=== PATIENT | female | born 2005 | race Two or more races ===

== ENCOUNTER 2024-08-23 06:59 | Emergency (ER) | payer BC, SELFPAY ==
[2024-08-23 07:04] VITALS: BP 131/87; PULSE 87; RESP 18; TEMP 36.7; O2SAT 98
--- NOTE | 2024-08-23 07:14 | XR_ITS ---
EXAMINATION: US pelvic complete ORDERING PROVIDER: KACIE Padilla HISTORY: 19-year-old with on and off pelvic pain and nausea x3 days. TECHNIQUE: Multiplanar still ultrasonography of the pelvis was performed using grayscale imaging, supplemented by color and spectral Doppler as needed. Images were performed transabdominally and transvaginally. COMPARISON: 01/07/2024, pelvic ultrasound. FINDINGS: Pertinent Labs: Beta-hCG pending Last Menstrual Period: 07/30/2024 Uterus: 7.6 x 3.7 x 5.7 cm. Normal in size and contour. Endometrium: 1.3 cm. Normal in size for menstrual status. Right Ovary: 3.8 x 2.7 x 3.3 cm, 17.8 mL. Normal in size, contour, and echogenicity. Normal vascular flow. Left Ovary: 2.3 x 1.2 x 1.8 cm, 2.7 mL. Normal in size, contour, and echogenicity. Normal vascular flow. Adnexa: No visible masses. Bladder: Visualized portions grossly unremarkable. Peritoneum: No fluid in the cul-de-sac. Additional comments: None IMPRESSION: No acute findings. In the absence of beta-hCG, if there is concern for , differential includes nonvisualized intrauterine , nonvisualized ectopic , and failed intrauterine . Recommend close clinical and laboratory follow-up.
--- NOTE | 2024-08-23 07:14 | PD.EDABDPN ---
ED Abdominal Pain RME/HPI General Chief Complaint: Abdominal Pain Stated complaint: LOWER ABD PAIN Time seen by provider: 08/23/24 07:15 Arrival date/time: 08/23/24 06:59 19-year-old female with no known medical history presents to the emergency room with a chief complaint of bilateral lower abdominal 6 out of 10 pain x 2 days. Patient denies any dysuria, hematuria, vaginal bleeding, vomiting, diarrhea. Source: patient Mode of arrival: ambulatory Limitations: no limitations Related Data Previous Rx's ?Medication ?Instructions ?Recorded hydrocodone 5 mg-acetaminophen 325 1 tab PO BID PRN pain #8 tabs 12/31/22 mg tablet ibuprofen 600 mg tablet 600 mg PO TID PRN pain #14 tabs 12/31/22 ondansetron 4 mg disintegrating 4 mg PO Q8H PRN nausea and 10/09/23 tablet vomiting #15 tabs hydrocodone 5 mg-acetaminophen 325 1 tab PO BID PRN pain #10 tabs 01/07/24 mg tablet cyclobenzaprine 10 mg tablet 10 mg PO TID #10 tabs 04/07/24 Allergies Allergy/AdvReac Type Severity Reaction Status Date / Time latex Allergy Rash Verified 04/07/24 09:27 Review of Systems Review of Systems Systems Reviewed: All systems reviewed, normal except as documented Constitutional Constitutional: Reports system reviewed and no additional complaints, except as documented, Denies fatigue, Denies fever(s), Denies headache(s) and Denies weakness Eyes Eyes: Reports system reviewed and no additional complaints, except as documented, Denies blurry vision and Denies change in vision ENT Ears, Nose, Mouth, and Throat: Reports system reviewed and no additional complaints, except as documented, Denies otalgia, Denies headache(s), Denies nasal congestion, Denies throat swelling and Denies vertigo Cardiovascular Cardiovascular: Reports system reviewed and no additional complaints, except as documented, Denies chest pain, Denies dyspnea and Denies dyspnea on exertion Respiratory Respiratory: Reports system reviewed and no additional complaints, except as documented, Denies chest congestion, Denies cough, Denies dyspnea, Denies dyspnea on exertion and Denies wheezing Gastrointestinal Gastrointestinal: Reports system reviewed and no additional complaints, except as documented, Reports abdominal pain, Denies constipation, Reports cramping, Denies loose stools, Denies nausea and Denies vomiting Genitourinary Genitourinary: Reports system reviewed and no additional complaints, except as documented Musculoskeletal Musculoskeletal: Reports system reviewed and no additional complaints, except as documented and Denies back pain Integumentary/Breasts Skin/Breast: Reports system reviewed and no additional complaints, except as documented and Denies wounds Neurologic Neurologic: Reports system reviewed and no additional complaints, except as documented, Denies confusion, Denies headache(s), Denies lack of coordination, Denies vertigo and Denies weakness Psychiatric Psychiatric: Reports system reviewed and no additional complaints, except as documented, Denies anxiety, Denies confusion, Denies depression, Denies paranoia, Denies suicidal ideation and Denies tactile hallucinations Endocrine Endocrine: Reports system reviewed and no additional complaints, except as documented and Denies fatigue Hematologic/Lymphatic Hematologic/Lymphatic: Reports system reviewed and no additional complaints, except as documented and Denies lymphadenopathy Allergic/Immunologic Allergic/Immunologic: Reports system reviewed and no additional complaints, except as documented, Denies throat swelling, Denies urticaria and Denies wheezing Past Medical History Past Medical History CARDIAC: Negative Cardiac Disorders or Congestive Heart Failure RESPIRATORY: Negative Chronic Obstructive Pulmonary Disease (COPD) or Asthma GENITOURINARY: Negative Renal Disease ENDOCRINE: Negative Diabetes Mellitus Type 1 or Diabetes Mellitus Type 2 HEMATOLOGIC: Negative Sickle Cell Disease Social History SMOKING STATUS: Never smoker ED Exam General Limitations: Present no limitations General appearance: Present alert and in no apparent distress Head Head exam: Present atraumatic Eye Eye exam: Present normal appearance, PERRL and EOMI ENT ENT exam: Present normal exam, normal oropharynx and mucous membranes moist Neck Neck exam: Present normal inspection, full ROM and trachea midline Chest Chest inspection: Present normal inspection and symmetric chest wall rise Respiratory Respiratory exam: Present normal lung sounds bilaterally Cardiovascular Cardiovascular exam: Present regular rate, normal rhythm and normal heart sounds Abdominal Exam Abdominal exam: Present soft, tenderness and normal bowel sounds; Absent distention, guarding, rebound or rigidity Abdominal tenderness: Present suprapubic and mild; Absent RUQ, RLQ, LUQ or LLQ Extremities Exam Extremities exam: Present normal inspection and full ROM Back Exam Back exam: Present normal inspection and full ROM Neurological Exam Neurological exam: Present alert, oriented X3 and CN II-XII intact Psychiatric Psychiatric exam: Present normal affect and normal mood Skin Skin exam: Present warm, dry, intact and normal color Course Quality Measures none Orders Category Date Time Status US abdomen limited Stat Exams 08/23/24 07:21 Completed US pelvic complete Stat Exams 08/23/24 07:14 Completed CBC Stat Lab 08/23/24 07:40 Completed CMP [Comprehensive Metabolic Panel] Stat Lab 08/23/24 07:40 Completed HCG Qualitative,Urine Stat Lab 08/23/24 09:30 Completed Lipase Stat Lab 08/23/24 07:40 Completed UA [Urinalysis] Stat Lab 08/23/24 09:30 Completed Urine Culture Stat Lab 08/23/24 09:30 Received HYDROcodone*/APAP 5/325 [[place]orn[place] 5/325] Med 08/23/24 07:15 Discontinued 1 tab PO X1 ONE Ondansetron Odt [Zofran Odt] Med 08/23/24 07:15 Discontinued 4 mg PO X1 ONE Vital Signs Vital signs: Vital Signs Temperature 98.1 F 08/23/24 07:04 Pulse Rate 87 08/23/24 07:04 Respiratory Rate 18 08/23/24 07:04 Blood Pressure 131/87 H 08/23/24 07:04 Pulse Oximetry (%) 98 08/23/24 07:04 Oxygen Delivery Method Room Air 08/23/24 07:04 O2 saturation 98% within normal limits Abdominal Pain MDM MDM Narrative MDM Narrative:: 19-year-old female with no known medical history presents to the emergency room with a chief complaint of bilateral lower abdominal 6 out of 10 pain x 2 days. Patient denies any dysuria, hematuria, vaginal bleeding, vomiting, diarrhea. Patient is hemodynamically stable there is no tachycardia tachypnea and the patient is afebrile Physical examination shows bilateral pelvic mild tenderness with palpation. Ultrasound of the pelvis was negative for any acute findings. Ultrasound of the abdomen was negative for any acute findings Patient was discharged and educated to follow-up with primary care provider in the next 24 to 48 hours and return to the emergency room for any evidence of worsening signs or symptoms Patient data External records reviewed:: [facility] previous records Clinical information provided by:: patient Social determinants that could affect healthcare access:: none Patient has the following chronic illnesses:: No chronic illness How is presenting disease/condition affected by chronic disease/condition?: no chronic disease Evaluation data The following diagnostics were reviewed and interpreted by me:: lab results and radiology exam(s) Lab and/or radiology exams considered but not ordered:: Labs and radiology exams considered and ordered Interpretation Summary: Ultrasound pelvis-FINDINGS: Pertinent Labs: Beta-hCG pending Last Menstrual Period: 07/30/2024 Uterus: 7.6 x 3.7 x 5.7 cm. Normal in size and contour. Endometrium: 1.3 cm. Normal in size for menstrual status. Right Ovary: 3.8 x 2.7 x 3.3 cm, 17.8 mL. Normal in size, contour, and echogenicity. Normal vascular flow. Left Ovary: 2.3 x 1.2 x 1.8 cm, 2.7 mL. Normal in size, contour, and echogenicity. Normal vascular flow. Adnexa: No visible masses. Bladder: Visualized portions grossly unremarkable. Peritoneum: No fluid in the cul-de-sac. Additional comments: None IMPRESSION: No acute findings. In the absence of beta-hCG, if there is concern for , differential includes nonvisualized intrauterine , nonvisualized ectopic , and failed intrauterine . Recommend close clinical and laboratory follow-up. Medications / Prescriptions Medications or Prescriptions considered but not ordered:: Medication given Medication administrations:: Medication Administration History Discontinued Medications Hydrocodone Bitart/Acetaminophen (Hydrocodone/Apap 5/325 Tablet) 1 tab PO X1 ONE Stop: 08/23/24 07:16 Last Admin: 08/23/24 07:42 Dose: 1 tab Documented By: LP Ondansetron HCl (Ondansetron Odt 4 Mg Tabrap) 4 mg PO X1 ONE; Protocol Stop: 08/23/24 07:16 Last Admin: 08/23/24 07:42 Dose: 4 mg Documented By: LP Medication given Consultations Consultation(s) initiated? (list below): No Diagnosis Differential diagnosis abdominal pain: abdominal pain, acute appendicitis and gastroenteritis Most likely diagnosis given after review of the tests above:: Gastroenteritis Admission Indicated Admission indicated?: not indicated Admission Request Was there a request for admission?: No Disposition Plan Disposition Plan: Discharge Discharge Attestation Discharge Attestation: The patient and all family members were given an opportunity to ask questions and understood the discharge instructions. Discharge instructions specifically effects, indications for sooner follow up or return to the emergency department, and the expected course of current diagnosis. Patient condition: Stable Discharge Plan Plan Patient Disposition: HOME (Self Care) Disposition Comment: Stable Prescriptions/Referrals Prescriptions/Med Rec: No Action ondansetron 4 mg tablet,disintegrating 4 mg PO Q8H PRN (Reason: nausea and vomiting) Qty: 15 0RF hydrocodone-acetaminophen 5-325 mg tablet 1 tab PO BID MDD 10mg PRN (Reason: pain) Qty: 10 0RF ibuprofen 600 mg tablet 600 mg PO TID PRN (Reason: pain) Qty: 14 0RF hydrocodone-acetaminophen 5-325 mg tablet 1 tab PO BID MDD 2 PRN (Reason: pain) Qty: 8 0RF cyclobenzaprine 10 mg tablet 10 mg PO TID Qty: 10 0RF Referrals: Obie Tipton MD [Primary Care Provider] - In 1 week Problem List Clinical Impression: Gastroenteritis Patient/Caregiver Discharge Instructions Education Materials: ED Gastroenteritis, Noninfectious Additional Instructions: Please follow-up with your primary care provider in the next 24 to 48 hours. Ultrasound of your abdomen and your pelvis were completed and were both negative for any acute findings. Your blood work and urinalysis were negative for any acute findings. For any evidence of worsening signs or symptoms return to the emergency room immediately Print Language: Swedish Stand Alone Forms: Anika Award Info., Work/School Release, Patient Portal Info Letter PA/[employer] Supervising Physician PA/[employer] Supervising Physician: Dr. JOHNS
--- NOTE | 2024-08-23 07:21 | XR_ITS ---
Examination: Abdomen sonogram, Limited Date and time of exam: August 12, 2024 0841 hrs. Indications: Pelvic pain beginning 3 days ago Technique: Real-time lewis scale transabdominal sonographic images of the lower abdomen obtained. Findings: No sonographic visualization appendix Impression: No sonographic visualization appendix
[2024-08-23] MEDS: ONDANSETRON ODT 4 MG TABRAP PO (07:42)
[2024-08-23] MEDS: HYDROcodone/APAP 5/325 TABLET 1 TAB PO (07:42)
[2024-08-23 08:37] LABS: Basophils % (Auto) 0 % (0-2.5); Eosinophils # (Auto) 0.2 Thou/mm3 (0.0-0.5); Eosinophils % (Auto) 1 % (0-10); Hematocrit 41.1 % (36.0-46.0); Hemoglobin 13.7 g/dL (12.0-16.0); Immature Granulocytes % (Auto) 0 % (0-0); Immature Granulocytes Auto 0.02 Thou/mm3 (0.00-0.00); Lymphocytes # (Auto) 3.5 Thou/mm3 (1.0-4.8); Lymphocytes % (Auto) 33 % (10-50); Mean Corpuscular HGB Conc 33.3 g/dl (31.0-37.0); Mean Corpuscular Hemoglobin 29.9 pg (25.0-35.0); Mean Corpuscular Volume 90 fL (80-100); Monocytes # (Auto) 0.8 Thou/mm3 (0.0-0.8); Monocytes % (Auto) 8 % (0-12); Neutrophils % (Auto) 57 % (37-80); Nucleated Red Blood Cell % 0 /100 WBC (0); Platelet Count 374 Thou/mm3 (140-440); RDW Standard Deviation 44.5 fL (36.4-46.3); Red Blood Count 4.58 Miln/mm3 (4.00-5.20); White Blood Count 10.5 Thou/mm3 (3.6-11.0)
[2024-08-23 08:50] LABS: Alanine Aminotransferase 46 U/L (10-49); Albumin, Serum 4.7 gm/dL (3.5-5.0); Albumin/Globulin Ratio 1.7 (1.2-2.2); Alkaline Phosphatase 85 U/L (46-116); Anion Gap 8 (7-16); Aspartate Amino Transferase 31 U/L (0-34); BUN/Creatinine Ratio 19 Ratio (12-20); Bilirubin,Total 0.8 mg/dL (0.3-1.2); Blood Urea Nitrogen 13 mg/dL (9-23); Calcium 9.7 mg/dL (8.3-10.6); Calcium (Corrected) 9.7 mg/dL (8.5-10.1); Chloride 104 mMol/L (98-107); Creatinine (Component) 0.7 mg/dL (0.6-1.3); Globulin 2.7 gm/dL (2.3-3.5); Glucose 94 mg/dL (74-106); Lipase 32 U/L (12-53); Osmolality,Calculated 277 (275-295); Potassium 4.1 mMol/L (3.4-5.1); Sodium 139 mMol/L (136-145); Total Protein 7.4 gm/dL (5.7-8.2); eGFR > 60 See Note
[2024-08-23 09:30] VITALS: BP 122/81; PULSE 65; RESP 16; TEMP 37.2; O2SAT 97
[2024-08-23 09:59] LABS: Collection Type, Urine Clean Catch
[2024-08-23 10:04] LABS: HCG Qualitative,Urine Negative
[2024-08-23 10:10] LABS: Bilirubin,Urine Negative (Negative); Blood,Urine Negative (Negative); Clarity,Urine Clear (Clear/Hazy); Color,Urine Lt-Yellow (Lt Yel-Yel); Glucose, Urine Negative (Negative); Ketones,Urine Negative (Negative); Leukocyte Esterase,Urine Negative (Negative); Nitrite,Urine Negative (Negative); PH,Urine 5.5 (5.0-7.0); Protein,Urine Negative (Neg - Trace); RBC,Urine 1 /hpf (0-3); Specific Gravity,Urine 1.025 (1.001-1.035); Squamous Epithelial Cell,Urine 2 /hpf (0-5); Urobilinogen,Urine Negative mg/dL (0.0-1.0); WBC,Urine 2 /hpf (0-5)
== END 2024-08-23 12:50 | disposition home or self-care (01) ==
PROVIDERS: Nurse Practitioner Family; Emergency Provider Emergency Medicine; PCP Family Medicine
DX: K52.9 Noninfective gastroenteritis and colitis, unspecified (principal); R10.2 Pelvic and perineal pain
CPT/HCPCS: 36415; 76705; 76856; 80053; 81001; 81025; 83690; 85025; 87086; 99284; Q0162; A9270

== ENCOUNTER → 2025-02-21 | Outpatient (CLI) | payer BC, SELFPAY ==
[2025-02-21 14:38] LABS: Alanine Aminotransferase 129 U/L (10-49); Albumin, Serum 4.8 gm/dL (3.5-5.0); Alkaline Phosphatase 79 U/L (46-116); Anion Gap 9 (7-16); Aspartate Amino Transferase 69 U/L (0-34); BUN/Creatinine Ratio 16 Ratio (12-20); Bilirubin,Direct 0.3 mg/dL (0.0-0.3); Bilirubin,Total 1.0 mg/dL (0.3-1.2); Blood Urea Nitrogen 13 mg/dL (9-23); Calcium 10.0 mg/dL (8.3-10.6); Carbon Dioxide 27.0 mMol/L (20.0-31.0); Cardiac Risk Estimate 3.0 RATIO (3.7-5.6); Chloride 105 mMol/L (98-107); Cholesterol 189 mg/dL (132-200); Creatinine (Component) 0.8 mg/dL (0.6-1.3); Glucose 95 mg/dL (74-106); HDL Cholesterol 64 mg/dL (40-60); LDL Cholesterol,Calculated 108 mg/dL (0-130); Osmolality,Calculated 281 (275-295); Potassium 4.6 mMol/L (3.4-5.1); Sodium 141 mMol/L (136-145); Total Protein 7.5 gm/dL (5.7-8.2); Triglycerides 86 mg/dL (30-150); eGFR > 60 See Note
[2025-02-28 06:28] LABS: Prolactin* 50.7 ng/mL
== END | disposition home or self-care (01) ==
LOC: COPL 12:57
PROVIDERS: PCP Family Medicine; Referring Provider Family Medicine; Visit Provider Family Medicine
DX: Z00.00 Encounter for general adult medical examination without abnormal findings (principal); E22.1 Hyperprolactinemia; E66.3 Overweight
CPT/HCPCS: 36415; 80048; 80061; 80076; 84146

== ENCOUNTER 2025-05-16 16:18 | Emergency (ER) | payer BC, SELFPAY ==
--- NOTE | 2025-05-16 16:21 | EKG_ITS ---
[facility] Test Date: 2025-05-16 Pat Name: YELENA PÉREZ Department: Room: - Gender: Female [employer] Adviser: : 2005 Requested By: Ana Phelan Order Number: [id number] Reading MD: Ana Phelan Measurements Intervals [place] Rate: 124 P: 16 [place]: 145 QRS: -2 QRSD: 86 T: 53 QT: 308 QTc: 444 Interpretive Statements SINUS TACHYCARDIA POSSIBLE ANTERIOR MYOCARDIAL INFARCTION , PROBABLY OLD [30 ms Q WAVE IN V3/V4, OR R < 0.2 mV IN V4] ABNORMAL RHYTHM ECG No previous ECG available for comparison /store/S0/[id number].pdf
[2025-05-16 16:25] VITALS: BP 138/102; PULSE 136; RESP 18; TEMP 36.8; O2SAT 98; BMI 34.5
--- NOTE | 2025-05-16 16:31 | XR_ITS ---
EXAMINATION: PA lateral chest 2 views TECHNIQUE: Upright PA lateral chest 2 views Date and time: 2024, 1700 hours INDICATIONS: Chest pain radiating to the arms beginning 2 hours ago. FINDINGS: Normal heart size Lungs are clear. Osseous structures are intact IMPRESSION: No active disease
--- NOTE | 2025-05-16 16:33 | PD.EDRME ---
Rapid Medical Screening Exam RME Arrival date/time: 05/16/25 16:18 20-year-old female presents to the Emergency Department for complaint of chest pain patient reports anxiety today patient reports chest pain ongoing x 2 hours Chief Complaint: Chest Pain Time Seen by Provider: 05/16/25 16:27 Vital signs: Vital Signs Temperature 98.2 F 05/16/25 16:25 Pulse Rate 136 H 05/16/25 16:25 Respiratory Rate 18 05/16/25 16:25 Blood Pressure 138/102 H 05/16/25 16:25 Pulse Oximetry (%) 98 05/16/25 16:25 Oxygen Delivery Method Room Air 05/16/25 16:25 Vital signs reviewed by provider: Yes Exam: On exam well-appearing does not appear look toxic no acute distress Clinical Impression: Lab work imaging and EKG obtained
[2025-05-16 17:17] LABS: Basophils # (Auto) 0.0 Thou/mm3 (0.0-0.2); Basophils % (Auto) 0 % (0-2.5); Eosinophils # (Auto) 0.1 Thou/mm3 (0.0-0.5); Eosinophils % (Auto) 0 % (0-10); Hematocrit 41.9 % (36.0-46.0); Hemoglobin 14.4 g/dL (12.0-16.0); Immature Granulocytes Auto 0.03 Thou/mm3 (0.00-0.00); Lymphocytes # (Auto) 2.4 Thou/mm3 (1.0-4.8); Lymphocytes % (Auto) 19 % (10-50); Mean Corpuscular HGB Conc 34.4 g/dl (31.0-37.0); Mean Corpuscular Hemoglobin 29.9 pg (25.0-35.0); Mean Corpuscular Volume 87 fL (80-100); Monocytes # (Auto) 0.9 Thou/mm3 (0.0-0.8); Monocytes % (Auto) 7 % (0-12); Neutrophils # (Auto) 9.4 Thou/mm3 (1.8-7.7); Neutrophils % (Auto) 73 % (37-80); Nucleated Red Blood Cell # 0.00 Thou/mm3 (0.00-0.00); Nucleated Red Blood Cell % 0 /100 WBC (0); Platelet Count 403 Thou/mm3 (140-440); RDW Standard Deviation 41.9 fL (36.4-46.3); Red Blood Count 4.81 Miln/mm3 (4.00-5.20); White Blood Count 12.9 Thou/mm3 (3.6-11.0)
[2025-05-16 17:36] LABS: HCG Qualitative,Urine Negative
[2025-05-16 17:57] LABS: Alanine Aminotransferase 104 U/L (10-49); Albumin, Serum 5.6 gm/dL (3.5-5.0); Albumin/Globulin Ratio 1.8 (1.2-2.2); Alkaline Phosphatase 82 U/L (46-116); Anion Gap 16 (7-16); Aspartate Amino Transferase 58 U/L (0-34); BUN/Creatinine Ratio 14 Ratio (12-20); Bilirubin,Total 0.8 mg/dL (0.3-1.2); Blood Urea Nitrogen 11 mg/dL (9-23); Calcium 10.5 mg/dL (8.3-10.6); Calcium (Corrected) 10.5 mg/dL (8.5-10.1); Carbon Dioxide 20.2 mMol/L (20.0-31.0); Chloride 103 mMol/L (98-107); Creatinine (Component) 0.8 mg/dL (0.6-1.3); Estimated Creatinine Clearance 129.6 mL/min (>60); Free T4 (Free Thyroxine) 1.42 ng/dL (0.89-1.76); Globulin 3.2 gm/dL (2.3-3.5); Glucose 86 mg/dL (74-106); Osmolality,Calculated 275 (275-295); Potassium 4.3 mMol/L (3.4-5.1); Sodium 139 mMol/L (136-145); Thyroid Stimulating Hormone 1.24 uIU/mL (0.55-4.78); Total Protein 8.8 gm/dL (5.7-8.2); Troponin I < 0.002 ng/mL (0.0-0.045); eGFR > 60 See Note
[2025-05-16 22:57] VITALS: BP 123/79; PULSE 94; RESP 18; TEMP 36.6; O2SAT 98
--- NOTE | 2025-05-16 23:03 | EKG_ITS ---
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
--- NOTE | 2025-05-16 23:05 | EDNOTE_ITS ---
ED General RME/HPI General Chief complaint: Chest Pain Stated complaint: CHEST PAIN, DYSPNEA, ARMS FEEL HEAVY Time Seen by Provider: 05/16/25 16:27 Arrival date/time: 05/16/25 16:18 RME / HPI RME / HPI narrative: 05/16/25 16:18 20-year-old female presents to the Emergency Department for complaint of chest pain patient reports anxiety today patient reports chest pain ongoing x 2 hours Exam: On exam well-appearing does not appear look toxic no acute distress Impression: Lab work imaging and EKG obtained Related Data Previous Rx's ?Medication ?Instructions ?Recorded hydrocodone 5 mg-acetaminophen 325 1 tab PO BID PRN pa in #8 tabs 12/31/22 mg tablet ibuprofen 600 mg tablet 600 mg PO TID PRN pain #14 t abs 12/31/22 ondansetron 4 mg disintegrating 4 mg PO Q8H PRN nausea and 10/09/23 tablet vomiting #15 tabs hydrocodone 5 mg-acetaminophen 325 1 tab PO BID PRN pa in #10 tabs 01/07/24 mg tablet cyclobenzaprine 10 mg tablet 10 mg PO TID #10 tabs Allergies Allergy/AdvReac Type Severity Reaction Status Date / Time latex Allergy Rash Verified 05/16/25 16:20 ED Exam Narrative Physical exam: Physical Exam: GENERAL: Awake, answering questions appropriately, appears stated age HEENT: NC/AT. Moist mucosa. PERRLA/EOMI. CARDIO: Heart RRR, no obvious murmurs, no JVD. PULM: No coughing or visible SOB. Lungs CTA B/L. GI: Abdomen soft, NT/ND, +BS. SKIN/MSK/EXT: No wounds/discoloration/rashes/edema/amputations noted. +Pedal pulses present B/L. NEURO: Oriented x3, Moves extremities x4, no focal neurologic deficits noted. Course Quality Measures none Orders Category Date Time Status EKG (ED ONLY) *Do not use* NOW Care 05/16/25 16:22 Completed EKG (ED ONLY) *Do not use* NOW Care 05/16/25 23:03 Active EKG (ED Only) Stat Exams 05/16/25 16:21 Draft EKG (ED Only) Stat Exams 05/16/25 23:03 Ordered XR chest 2V Stat Exams 05/16/25 16:31 Completed CBC Stat Lab 05/16/25 16:48 Completed Comprehensive Metabolic Panel Stat Lab 05/16/25 16:48 Completed Free T4 (Free Thyroxine) Stat Lab 05/16/25 16:48 Completed HCG Qualitative,Urine Stat Lab 05/16/25 16:53 Completed TSH [Thyroid Stimulating Hormone] Stat Lab 05/16/25 16:48 Completed Troponin I Stat Lab 05/16/25 16:48 Completed Vital Signs Vital signs: Vital Signs Temperature 98.2 F 05/16/25 16:25 Pulse Rate 136 H 05/16/25 16:25 Respiratory Rate 18 05/16/25 16:25 Blood Pressure 138/102 H 05/16/25 16:25 Pulse Oximetry (%) 98 05/16/25 16:25 Oxygen Delivery Method Room Air 05/16/25 16:25 Discharge Plan Plan Patient Disposition: HOME (Self Care) Discharge Disposition comment: Follow-up with your PCP within 3 days You have elevated liver enzymes, 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, ask your PCP for weight management Patient condition on transfer: Stable Prescriptions/Referrals Prescriptions/Med Rec: No Action ondansetron 4 mg tablet,disintegrating 4 mg PO Q8H PRN (Reason: nausea and vomiting) Qty: 15 0RF hydrocodone-acetaminophen 5-325 mg tablet 1 tab PO BID MDD 10mg PRN (Reason: pain) Qty: 10 0RF ibuprofen 600 mg tablet 600 mg PO TID PRN (Reason: pain) Qty: 14 0RF hydrocodone-acetaminophen 5-325 mg tablet 1 tab PO BID MDD 2 PRN (Reason: pain) Qty: 8 0RF cyclobenzaprine 10 mg tablet 10 mg PO TID Qty: 10 0RF Referrals: Obie Tipton MD [Primary Care Provider, Family Practice] - In 1 week Problem List Clinical Impression: Atypical chest pain Patient/Caregiver Discharge Instructions Education Materials: ED Chest Pain, Noncardiac Print Language: Spanish Stand Alone Forms: Anika Award Info., Patient Portal Info Letter Attestation Attestation Gay Marrero MDM Narrative MDM hospital course (for use when minimal MDM required): HPI: 20-year-old female with no significant past medical history presenting to the ED on 05/16 with chest pain. Patient states that earlier this afternoon after work she was driving home when she developed chest discomfort in the center of her chest radiating to her bilateral upper arms. She states that both of her hands for a few seconds went numb. She also had some dizziness during this episode and she states she has never had a similar episode in the past. Her chest discomfort lasted for several hours but slowly subsided and she currently does not have any chest discomfort. She denies having any concerning cardiac symptoms such as shortness of breath, palpitations, orthopnea, paroxysmal nocturnal dyspnea, lower extremity edema. She also denies having any family history of heart disease, denies any family members with MS or stroke. She lives an active lifestyle and denies having any chest pain during exertion. Physical examination as noted above, patient presented mildly hypertensive and tachycardic with a blood pressure 138/102 and heart rate of 136 which have since improved to a blood pressure of 123/79 and heart rate of 94, afebrile satting 98 on room air. Pertinent lab findings include a mild leukocytosis of 12.9, hemoglobin 14.4, CMP is largely unremarkable, calcium is mild-moderately elevated at 10.5, liver enzymes are also elevated AST 58, ALT 104, troponin less than 0.02, TSH 1.24. 2 EKGs were taken; first 1 was sinus tachycardia without any concerning ST changes and the second 1 hours later completed showed normal sinus rhythm without any concerning ST changes. Chest x-ray did not show any active disease Differentials for atypical chest pain include: Coronary spasm, angina, musculoskeletal disorder, costochondritis, anxiety disorder #Atypical chest pain As noted above patient is 20 years old, has no real concerning risk factors for coronary artery disease Patient does state that she did have a recent stressor but denies having anxiety at this time Troponin is negative and both EKGs do not show any concerning ST changes Plan: Reassured patient that her symptoms are most likely noncardiac related Patient will follow-up with PCP within 1 week Patient understands that if her chest pain resurfaces or if she has any crushing chest pain associated with shortness of breath, dizziness and palpitations to come right back to the emergency room Patient seen and assessed with attending Dr. Liliana Bauer, DO PGY-2 Internal Medicine - [facility]
== END 2025-05-16 23:24 | disposition home or self-care (01) ==
PROVIDERS: Nurse Practitioner Primary Care; Emergency Provider Emergency Medicine; PCP Family Medicine
DX: R07.89 Other chest pain (principal); R00.0 Tachycardia, unspecified
CPT/HCPCS: 36415; 71046; 80053; 81025; 84439; 84443; 84484; 85025; 93005; 99283